=== PATIENT | male | born 1985 | race Caucasian/White ===

== ENCOUNTER 2019-06-29 11:20 | Emergency (ER) | payer BC ==
[~2019-06-29] VITALS: Ht 190.5 cm; Wt 120.2 kg
[2019-06-29 11:29] VITALS: Ht 190.5 cm; Wt 120.2 kg
[2019-06-29 12:05] VITALS: BP 145/98
== END 2019-06-29 12:05 | disposition home or self-care (01) ==
LOC: ED 11:20
DX: G51.0 Bell's palsy (principal); I10 Essential (primary) hypertension
CPT/HCPCS: J7512